=== PATIENT | female | born 1940 | race Caucasian/White ===

== ENCOUNTER 2022-05-07 09:02 | Inpatient (IN) | payer MEDICARE, OTHER ==
[~2022-05-07] VITALS: Ht 160 cm; Wt 58.2 kg
[2022-05-07 09:55] LABS: BASOPHIL 0.4 % (0-2); EOSINOPHIL 2.6 % (0-7); HGB 12.3 g/dl (12.5-16.0); LYMPHOCYTE 25.5 % (15-48); MCH 31.8 pg (25.0-31.0); MCHC 32.4 g/dL (32.0-36.0); MCV 98.2 fL (78.0-100.0); MONOCYTE 5.2 % (0-12); MPV 10.3 fL (6.0-9.5); NRBC 0; PLT 220 K/uL (150-400); RBC 3.87 M/uL (4.20-5.40); RDW 14.5 % (11.5-14.0); WBC 9.1 K/uL (4.0-10.5)
[2022-05-07 10:20] LABS: LACTIC ACID 0.9 mmol/L (0.4-1.9)
[2022-05-07 10:24] LABS: INR 2.08 (0.9-1.2); PROTHROMBIN TIME 22.7 SECONDS (11.9-13.9); PTT 47.5 SECONDS (24.9-34.6)
[2022-05-07 10:35] LABS: BUN/CREAT RATIO (CALC) 19.4 RATIO; CREATININE 0.62 mg/dL (0.51-0.95); MAGNESIUM 1.8 mg/dL (1.8-2.4); POTASSIUM 3.9 mmol/L (3.5-5.1)
[2022-05-07 11:56] LABS: BILIRUBIN NEGATIVE (NEGATIVE); BLOOD NEGATIVE Ery/uL (NEGATIVE); CLARITY CLEAR (CLEAR); COLOR YELLOW (YELLOW); GLUCOSE (U) NORMAL (NORMAL); LEUKOCYTES NEGATIVE Leu/uL (NEGATIVE); NITRITE NEGATIVE (NEGATIVE); PROTEIN 1+ mg/dL (NEGATIVE); SPECIFIC GRAVITY 1.015 (1.001-1.030); pH 7.5 (5.0-9.0)
[2022-05-07 12:10] LABS: BACTERIA TRACE
[2022-05-07] MEDS ORDERED: ALLEGRA ALLERG180 MG PO (13:42)
[2022-05-07] MEDS ORDERED: CRANBERRY500 M3 PO (13:44)
[2022-05-07] MEDS ORDERED: BENTYL10 MG PO ×2 (13:45)
[2022-05-07] MEDS ORDERED: PRILOSEC20 MG PO (13:47)
[2022-05-07] MEDS ORDERED: CARDIZEM CD120 MG PO (13:47)
[2022-05-07] MEDS ORDERED: XARELTO15 MG PO (13:48)
[2022-05-07] MEDS ORDERED: COLESTID 1GM TAB1 GM PO (13:48)
[2022-05-07] MEDS ORDERED: ROXIFOL-D TA500 UNIT PO (13:50)
[2022-05-07] MEDS ORDERED: LASIX20 MG PO (13:50)
[2022-05-07] MEDS ORDERED: CARVEDILOL 1212.5 MG PO (13:51)
[2022-05-08 05:31] LABS: BASOPHIL 0.3 % (0-2); EOSINOPHIL 1.3 % (0-7); HCT 36.4 % (37.0-47.0); HGB 12.1 g/dl (12.5-16.0); LYMPHOCYTE 25.2 % (15-48); MCH 32.1 pg (25.0-31.0); MCHC 33.2 g/dL (32.0-36.0); MCV 96.6 fL (78.0-100.0); MONOCYTE 6.7 % (0-12); MPV 9.9 fL (6.0-9.5); NEUTROPHIL 66.2 % (41-80); NRBC 0; PLT 200 K/uL (150-400); RBC 3.77 M/uL (4.20-5.40); RDW 14.1 % (11.5-14.0)
[2022-05-08 05:55] LABS: BUN/CREAT RATIO (CALC) 17.7 RATIO; CREATININE 0.79 mg/dL (0.51-0.95); POTASSIUM 3.5 mmol/L (3.5-5.1)
[2022-05-09 05:36] LABS: BASOPHIL 0.3 % (0-2); EOSINOPHIL 2.3 % (0-7); HCT 38.6 % (37.0-47.0); HGB 12.5 g/dl (12.5-16.0); LYMPHOCYTE 23.1 % (15-48); MCH 31.3 pg (25.0-31.0); MCHC 32.4 g/dL (32.0-36.0); MCV 96.5 fL (78.0-100.0); MONOCYTE 7.3 % (0-12); MPV 9.9 fL (6.0-9.5); NEUTROPHIL 66.7 % (41-80); NRBC 0; PLT 223 K/uL (150-400); RDW 13.6 % (11.5-14.0); WBC 11.3 K/uL (4.0-10.5)
[2022-05-09 06:17] LABS: CREATININE 0.9 mg/dL (0.51-0.95); MAGNESIUM 1.7 mg/dL (1.8-2.4); POTASSIUM 3.7 mmol/L (3.5-5.1)
[2022-05-10 05:58] LABS: BASOPHIL 0.3 % (0-2); EOSINOPHIL 4.8 % (0-7); HGB 11.9 g/dl (12.5-16.0); LYMPHOCYTE 29.8 % (15-48); MCH 31.2 pg (25.0-31.0); MCHC 32.2 g/dL (32.0-36.0); MCV 97.1 fL (78.0-100.0); MONOCYTE 7.7 % (0-12); MPV 10.2 fL (6.0-9.5); NEUTROPHIL 57.2 % (41-80); NRBC 0; PLT 213 K/uL (150-400); RBC 3.81 M/uL (4.20-5.40); RDW 13.8 % (11.5-14.0); WBC 9.6 K/uL (4.0-10.5)
[2022-05-10 06:17] LABS: BUN/CREAT RATIO (CALC) 26.3 RATIO; CREATININE 0.99 mg/dL (0.51-0.95); POTASSIUM 3.7 mmol/L (3.5-5.1)
[2022-05-12 07:06] LABS: BASOPHIL 0.3 % (0-2); EOSINOPHIL 3.1 % (0-7); HCT 35.9 % (37.0-47.0); HGB 11.5 g/dl (12.5-16.0); LYMPHOCYTE 28.3 % (15-48); MCH 31.3 pg (25.0-31.0); MCV 97.8 fL (78.0-100.0); MONOCYTE 7.1 % (0-12); MPV 9.8 fL (6.0-9.5); NRBC 0; PLT 213 K/uL (150-400); RBC 3.67 M/uL (4.20-5.40); RDW 13.5 % (11.5-14.0); WBC 9.8 K/uL (4.0-10.5)
[2022-05-12 07:54] LABS: BUN/CREAT RATIO (CALC) 27.1 RATIO; CREATININE 0.7 mg/dL (0.51-0.95); POTASSIUM 3.9 mmol/L (3.5-5.1)
[2022-05-12] MEDS ORDERED: LASIX40 MG PO (10:40)
[2022-05-12] MEDS ORDERED: CARDIZEM CD180 MG PO (10:40)
== END 2022-05-12 13:46 | DRG 291 ==
LOC: FER 09:02 → FTCU 11:27 → FMS 05-11 13:21
PROVIDERS: Emergency Medicine; Internal Medicine; ADMIT Internal Medicine
PROC: B24BZZZ Ultrasonography of Heart with Aorta (ICD-10-PCS; principal; 2022-05-08)
DX: I11.0 Hypertensive heart disease with heart failure (principal); I50.33 Acute on chronic diastolic (congestive) heart failure; J96.01 Acute respiratory failure with hypoxia; J96.22 Acute and chronic respiratory failure with hypercapnia; I48.20 Chronic atrial fibrillation, unspecified; I27.20 Pulmonary hypertension, unspecified; I36.1 Nonrheumatic tricuspid (valve) insufficiency; F03.90 Unspecified dementia, unspecified severity, without behavioral disturbance, psychotic disturbance, mood disturbance, and anxiety; Z20.822 Contact with and (suspected) exposure to COVID-19; K21.9 Gastro-esophageal reflux disease without esophagitis; Z86.73 Personal history of transient ischemic attack (TIA), and cerebral infarction without residual deficits; K58.9 Irritable bowel syndrome, unspecified; Z82.49 Family history of ischemic heart disease and other diseases of the circulatory system; Z90.49 Acquired absence of other specified parts of digestive tract; Z88.0 Allergy status to penicillin; Z88.8 Allergy status to other drugs, medicaments and biological substances; Z79.899 Other long term (current) drug therapy
CPT/HCPCS: 36415; 36600; 71045; 71250; 80048; 81001; 82803; 83605; 83735; 83880; 84145; 84484; 85025; 85610; 85730; 87040; 87076; 87088; 93005; 94010; 97110; 97162; 97166; 97530; 97530-GP; 97535; J1940; J2405; J3475; U0002